=== PATIENT | female | born 1975 | race Caucasian/White ===

== ENCOUNTER 2023-01-27 21:53 | Observation (INO) | payer BC, SELFPAY ==
[2023-01-27 21:57] VITALS: BP 165/94; PULSE 65; RESP 20; TEMP 36.6; O2SAT 100; BMI 28.8
[2023-01-27 22:04] VITALS: BP 165/94
--- NOTE | 2023-01-27 22:27 | ED_ITS ---
HPI - Chest Pain General Chief Complaint: Back Pain/Injury Stated Complaint: BACK PAIN, NECK PAIN Time Seen by Provider: 01/27/23 22:10 Source: patient Mode of arrival: walk-in Limitations: no limitations History of Present Illness HPI narrative: patient states she was at work at around 7pm and developed left arm pain and pain of her left back. Was taken to [facility] and was placed in the waiting room for 2 hours. States she called her and had him bring her here. The pain continues and is now radiating into her left neck as well. Pain 9/10. No associated nausea or dyspnea. no abdominal pain or prior history of similar pain. Her only heart history fo mitral valve replacement several years ago. She does not smoke cigarettes but does Vape. Denies any significant family history of heart disease. Denies chest pain Risk Factors Coronary artery disease risk factors: smoking history Related Data Home Medications Medication Instructions Recorded Confirmed ibuprofen 400 mg tablet (IBU) 400 mg PO TID-QID PRN fever or pain 01/28/23 01/28/23 levothyroxine 125 mcg tablet 125 mcg PO DAILY 01/28/23 01/28/23 Previous Rx's Medication Instructions Recorded cyclobenzaprine 10 mg tablet 10 mg PO TID PRN Muscle Spasm #30 01/28/23 tabs oxycodone-acetaminophen 5 mg-325 1 tab PO Q4H PRN Moderate Pain 5 01/28/23 mg tablet days #0 tabs prednisone 10 mg tablets in a dose 10 mg PO DAILY #39 ea 01/28/23 pack Allergies Allergy/AdvReac Type Severity Reaction Status Date / Time aspirin Allergy Unknown Verified 01/27/23 22:06 Iodinated Contrast Media Allergy Unknown Verified 01/27/23 22:06 Penicillins Allergy Unknown Verified 01/27/23 22:06 promethazine [From Phenergan] Allergy Unknown Verified 01/27/23 22:06 Review of Systems ROS Status of ROS 10 or more systems reviewed and unremarkable except as noted in history and below [facility] Medical History (Updated 01/28/23 @ 09:15 by Balwinder Gamez MD) Surgical History (Updated 01/28/23 @ 05:02 by Sussy Manjarrez) Family History (Updated 01/28/23 @ 05:02 by Sussy Manjarrez) Father Family history of cancer Mother Family history of cancer Social History (Updated 01/28/23 @ 05:20 by Sussy Manjarrez) Within the past year, how often did you have a drink containing alcohol: monthly or less Within the past year, how many standard drinks containing alcohol did you have on a typical day: 1 or 2 Within the past year, how often did you have six or more drinks on one occasion: never Total score: 0 Score interpretation: A score less than 3 is consistent with normal alcohol consumption. Do you use any of these nicotine containing products: vaping products Non-prescribed substance use: denies use Little interest or pleasure in doing things: not at all Feeling down, depressed, or hopeless: not at all Feel stressed/tense/nervous/anxious/difficulty sleeping: not at all Do you think of yourself as: straight/heterosexual Gender Identity: female Exam Constitutional Vital Signs - 24 hr 01/27/23 21:57 01/27/23 22:04 01/28/23 04:33 Temperature 97.9 F Pulse Rate [Monitor] 65 Respiratory Rate 20 Blood Pressure 165/94 H 149/93 H Blood Pressure [Right Arm] 165/94 H Pulse Oximetry 100 Oxygen Delivery Method Room Air Common normals: no apparent distress, average body habitus, oriented x3, no limitations and healthy appearing HENNM Common normals: normocephalic and head/scalp atraumatic Eye Common normals: EOMs intact bilaterally and conjunctivae normal Respiratory Common normals: normal respiratory effort, no retractions, no use of accessory muscles and clear to auscultation bilaterally GI Common normals: non-tender Extremity Common normals: normal to inspection and full ROM Neuro Common normals: oriented x3, CN's II-XII intact bilaterally, moves all extremities, no focal motor deficits and no sensory deficits noted Psych Appearance: grossly normal Course Vital Signs Vital signs: Vital Signs Temperature 97.9 F 01/27/23 21:57 Pulse Rate 65 01/27/23 21:57 Respiratory Rate 20 01/27/23 21:57 Blood Pressure 165/94 H 01/27/23 21:57 Pulse Oximetry 100 01/27/23 21:57 Oxygen Delivery Method Room Air 01/27/23 21:57 Temperature 96.9 F L 01/28/23 13:14 Pulse Rate 59 L 01/28/23 13:14 Respiratory Rate 16 01/28/23 13:14 Blood Pressure 111/73 01/28/23 13:14 Pulse Oximetry 97 01/28/23 13:14 Oxygen Delivery Method Room Air 01/28/23 13:14 MDM - Chest Pain MDM Narrative Medical decision making narrative: patient presents with pain radiating down her left arm and into her back beneath her shoulder blade. Pain then radiated into her left neck. Normal EKG and serial troponin neg. Pain continued despite morphine and dilaudid . Only decreasing from 9/10 to 8/10. CT with findings of disc herniation that may explain her radicular symptoms and MRI recommended. Discussed with hospitalist and will plan obs admission Lab Data Labs: Lab Results 01/27/23 01/28/23 01/28/23 Range/Units 22:15 02:20 03:35 WBC 10.5 (4.0-11.0) 10^3/uL RBC 4.37 (4.20-5.40) 10^6/uL Hgb 12.9 (12.0-16.0) g/dL Hct 36.5 (36.0-48.0) % MCV 83.5 (81.0-99.0) fL MCH 29.5 (26.7-34.0) pg MCHC 35.3 H (29.9-35.2) g/dL RDW 13.6 (11.0-15.0) % Plt Count 180 (150-450) 10^3/uL MPV 10.0 (9.5-13.5) fL Neut % (Auto) 69.9 (43.0-75.0) % Lymph % (Auto) 20.7 (20.5-60.0) % Shackelford % (Auto) 6.9 (1.7-12.0) % Eos % (Auto) 1.2 (0.9-7.0) % Baso % (Auto) 0.9 (0.2-2.0) % Neut # (Auto) 7.4 H (1.4-6.5) 10^3/uL Lymph # (Auto) 2.2 (1.2-3.8) 10^3/uL Shackelford # (Auto) 0.7 (0.3-0.8) 10^3/uL Eos # (Auto) 0.1 (0.0-0.7) 10^3/uL Baso # (Auto) 0.1 (0.0-0.1) 10^3/uL Abs Immat Gran (auto) 0.04 H (0.00-0.03) 10^3/uL Imm/Tot Granulo (auto) 0.4 (0.0-0.5) % ESR 16 (<=20) mm/hr Sodium 139 (136-145) mmol/L Potassium 3.4 L (3.5-5.1) mmol/L Chloride 105 (98-107) mmol/L Carbon Dioxide 24.4 (21.0-32.0) mmol/L Anion Gap 13.0 BUN 10.0 (7.0-18.0) mg/dL Creatinine 0.90 (0.55-1.02) mg/dL Est GFR ( Amer) >60 (>=60) Est GFR (Non-Af Amer) >60 (>=60) BUN/Creatinine Ratio 11.1 Glucose 94 (74-106) mg/dL Calcium 9.1 (8.5-10.1) mg/dL Troponin I High Sens 5.5 6.8 (4.0-51.3) pg/mL C-Reactive Protein <0.2 (<=1.0) mg/dL Discharge Plan Discharge Chief Complaint: Back Pain/Injury Clinical Impression: Neuropathy, cervical (radicular) Patient Disposition: Admitted as Observation Discharge Date/Time: 01/28/23 04:56
--- NOTE | 2023-01-27 22:31 | XR_ITS ---
The [address] [address] Patient Name: RAND SCOTT MRN: [facility]:[id number] date: 1975 Sex: F Assigned Patient Location: ER Current Patient Location: ER Accession/Order Number: [id number] Exam Date: 01/27/2023 23:00 Report Date: 01/27/2023 23:15 At the request of: LUCITA MOULTON Procedure: XR chest 1V EXAM: XR chest 1V REASON FOR EXAM: Female, 47 years, chest pain. TECHNIQUE: A single AP view of the chest is performed. COMPARISON: 06/17/2020. FINDINGS: The lungs are expanded and clear. Normal pleura. Sternal wires are seen. Heart is not significantly enlarged. Normal mediastinum and gia. Normal visualized pulmonary arteries. Normal visualized aortic arch and descending thoracic aorta. Normal visualized thoracic spine. Normal visualized ribs, clavicles, and shoulders. There is no demonstrated abnormality of the visualized soft tissue structures of the upper abdomen. IMPRESSION: No acute process in the chest. Electronically authenticated by: JORDY BERNAL Date: 01/27/2023 23:15
--- NOTE | 2023-01-27 22:31 | ECG_ITS ---
The [facility] Test Date: 2023-01-27 Pat Name: RAND SCOTT Department: Room: - Gender: Female [employer]: : 1975 Requested By: [id number] Order Number: [id number] Reading MD: VIKI ALVAREZ Measurements Intervals Jesse Rate: 68 P: 44 IA: 204 QRS: 79 QRSD: 90 T: 44 QT: 404 QTc: 421 Interpretive Statements 1100 Sinus rhythm 9110 normal ECG No previous ECG available for comparison Electronically Signed On 01-28-2023 7:11:20 EDT by VIKI ALVAREZ
[2023-01-27 22:36] LABS: Basophils Absolute Auto 0.1 10^3/uL (0.0-0.1); Basophils Percent Auto 0.9 % (0.2-2.0); Eosinophils Absolute Auto 0.1 10^3/uL (0.0-0.7); Eosinophils Percent Auto 1.2 % (0.9-7.0); Hematocrit 36.5 % (36.0-48.0); Hemoglobin 12.9 g/dL (12.0-16.0); Immature Granulocytes Abs Auto 0.04 10^3/uL (0.00-0.03); Immature Granulocytes Pct Auto 0.4 % (0.0-0.5); Lymphocytes Absolute Auto 2.2 10^3/uL (1.2-3.8); Lymphocytes Percent Auto 20.7 % (20.5-60.0); Mean Corpuscular HGB Conc 35.3 g/dL (29.9-35.2); Mean Corpuscular Hemoglobin 29.5 pg (26.7-34.0); Mean Corpuscular Volume 83.5 fL (81.0-99.0); Monocytes Absolute Auto 0.7 10^3/uL (0.3-0.8); Monocytes Percent Auto 6.9 % (1.7-12.0); Neutrophils Absolute Auto 7.4 10^3/uL (1.4-6.5); Neutrophils Percent Auto 69.9 % (43.0-75.0); Platelet Count 180 10^3/uL (150-450); Red Blood Count 4.37 10^6/uL (4.20-5.40); Red Cell Distribution Width 13.6 % (11.0-15.0); White Blood Count 10.5 10^3/uL (4.0-11.0)
[2023-01-27 22:55] LABS: BUN Creatinine Ratio 11.1; Calcium 9.1 mg/dL (8.5-10.1); Carbon Dioxide 24.4 mmol/L (21.0-32.0); Chloride 105 mmol/L (98-107); Estimated GFR (African America >60 (>=60); Estimated GFR (Non-African Ame >60 (>=60); Glucose 94 mg/dL (74-106); Potassium 3.4 mmol/L (3.5-5.1); Sodium 139 mmol/L (136-145); Troponin I High Sensitivity 5.5 pg/mL (4.0-51.3)
[2023-01-27] MEDS: ONDANSETRON PF 4 MG/2 ML VIAL IV (23:21)
[2023-01-27] MEDS: MORPHINE SULFATE 4 MG/ML VIAL IV (23:21)
[2023-01-28] MEDS: NITROGLYCERIN 0.4 MG TAB.SUBL PO (00:16)
[2023-01-28] MEDS: MORPHINE SULFATE 4 MG/ML VIAL IV (00:25)
--- NOTE | 2023-01-28 00:35 | CT_ITS ---
The [address] [address] Patient Name: RAND SCOTT MRN: [facility]:[id number] date: 1975 Sex: F Assigned Patient Location: ER Current Patient Location: ER Accession/Order Number: [id number] Exam Date: 01/28/2023 01:00 Report Date: 01/28/2023 01:40 At the request of: LUCITA MOULTON Procedure: CT cervical spine wo con EXAM: CT cervical spine wo con HISTORY: Acute radicular pain. COMPARISON: None. TECHNIQUE: Noncontrast CT of the cervical spine performed. FINDINGS: Alignment is normal. No fracture or subluxation. There is mild loss of disc height from C4-C5 to C6-C7. Canal is widely patent. Bony exit foramina are patent. There does appear to be a small lateral disc herniation on the left side effacing the exit foramina at the C4-C5 level. Lung apices are clear to the extent of visualization. IMPRESSION: 1. No acute osseous abnormality. 2. Mild lower cervical degenerative changes are noted. 3. There is a small lateral disc herniation on the left at C4-C5 which does efface the left-sided exit foramina at this level and may correlate with reported history of left upper extremity radicular symptoms. Recommend nonemergent MRI follow-up. Electronically authenticated by: MITCH SCHERER Date: 01/28/2023 01:40
[2023-01-28] MEDS: HYDROMORPHONE HCL 0.5 MG/0.5 ML SYRINGE IV (02:49)
[2023-01-28] MEDS: ONDANSETRON PF 4 MG/2 ML VIAL (02:54)
[2023-01-28 02:56] LABS: Troponin I High Sensitivity 6.8 pg/mL (4.0-51.3)
[2023-01-28 04:25] LABS: Erythrocyte Sedimentation Rate 16 mm/hr (<=20)
[2023-01-28] MEDS: DIPHENHYDRAMINE HCL 50 MG/ML (1ML) VIAL 25 MG IV (04:26)
[2023-01-28 04:28] LABS: C Reactive Protein <0.2 mg/dL (<=1.0)
[2023-01-28 04:33] VITALS: BP 149/93
[2023-01-28 05:06] VITALS: BP 134/76; PULSE 51; RESP 16; TEMP 36.4; O2SAT 96; BMI 29.5
--- NOTE | 2023-01-28 05:31 | W.PM.TELEPN ---
Progress Note: Subjective Subjective Interval history: CC: neck pain radiating to LUE HPI: This is a 47 years old usually healthy female who presents with above complaints. Patient stating that during the work time suddenly she started to experience pain in her neck. Pain gradually intensified to the point become unbearable. She reports pain radiating to his left shoulder and left arm. She feels that her neck is stiff. She denies any fever or chills. She denies any trauma. She stated that she had similar episodes in the remote past but much less intensity. Exam Narrative Exam Narrative: Physical Exam: Not in distress, pleasant, lucid, cooperative, Head - atraumatic, eyes - pupils equal, round, reactive to light, extra ocular movement intact, MMM Neck - supple, thyroid not enlarged, LN not palpated Lungs - clear to auscultation, no dullness on percussion CVS - heart sounds S1, S2, no additional murmurs gallop, regular rate and rhythm Gastrointestinal?abdomen is soft, non-tender, non-distended, no organomegaly, positive bowel sounds Extremities no clubbing, cyanosis or edema Neurological?cranial nerve II?XII grossly intact, no meningeal signs, no cerebellar signs, no sensory deficit Musculoskeletal - DJD related changes in multiple joints, no effusions, ROM preserved Dermatological - the skin dry, warm, no rashes Psychiatric?patient is AAO X3, patient has normal affect Constitutional Vital Signs - 24 hr 01/27/23 21:57 01/27/23 22:04 01/28/23 04:33 Temperature 97.9 F Pulse Rate Pulse Rate [Monitor] 65 Respiratory Rate 20 Blood Pressure 165/94 H 149/93 H Blood Pressure [Left Arm] Blood Pressure [Right Arm] 165/94 H Pulse Oximetry 100 Oxygen Delivery Method Room Air 01/28/23 05:06 01/28/23 05:06 01/28/23 05:06 Temperature 97.6 F 97.6 F Pulse Rate 51 L 51 L Pulse Rate [Monitor] Respiratory Rate 16 16 Blood Pressure Blood Pressure [Left Arm] 134/76 H 134/76 H Blood Pressure [Right Arm] Pulse Oximetry 96 96 Oxygen Delivery Method Room Air Room Air Room Air Progress Note: Objective Labs Labs: Short CBC 01/27/23 Range/Units 22:15 WBC 10.5 (4.0-11.0) 10^3/uL Hgb 12.9 (12.0-16.0) g/dL Hct 36.5 (36.0-48.0) % Plt Count 180 (150-450) 10^3/uL BMP 01/27/23 22:15 Sodium 139 Potassium 3.4 L Chloride 105 Carbon Dioxide 24.4 BUN 10.0 Creatinine 0.90 Glucose 94 Calcium 9.1 Progress Note: A&P Assessment and Plan (1) Neuropathy, cervical (radicular): Assessment and Plan: Intractable neck pain with mild radiculopathy. CT of the cervical spine reveal mild disc bulging. I am going to continue with steroids, muscle relaxers, anti-inflammatory medications. Follow-up with physical occupational therapy. I ordered MRI. (2) Hypothyroid: Assessment and Plan: Continue home dose of supplemental levothyroxine (3) Mitral and aortic valve disease: Assessment and Plan: Follow-up with the credit review manager as outpatient Telemedicine Attestation Telemedicine Attestation I conducted this encounter from [place] [] via secure live, [id number] video conference with the patient, located at [facility] with [intractable pain]. Prior to the interview, the risks and benefits of telemedicine were discussed with the patient and verbal consent was obtained.
[2023-01-28] MEDS: PREDNISONE 20 MG TABLET 40 MG PO (08:14)
[2023-01-28] MEDS: ONDANSETRON PF 4 MG/2 ML VIAL IV (08:15)
[2023-01-28 08:38] LABS: Alanine Aminotransferase 24 U/L (14-59); Albumin Level 3.4 g/dL (3.4-5.0); Alkaline Phosphatase 72 U/L (46-116); Anion Gap 12.4; Aspartate Amino Transferase 18 U/L (15-37); BUN Creatinine Ratio 15.5; Bilirubin Total 0.7 mg/dL (0.2-1.0); Calcium 8.4 mg/dL (8.5-10.1); Carbon Dioxide 23.6 mmol/L (21.0-32.0); Chloride 105 mmol/L (98-107); Estimated GFR (African America >60 (>=60); Estimated GFR (Non-African Ame >60 (>=60); Globulin 3.4 g/dL; Glucose 113 mg/dL (74-106); Sodium 137 mmol/L (136-145); Total Protein 6.8 g/dL (6.4-8.2)
[2023-01-28] MEDS: LEVOTHYROXINE SODIUM 125 MCG TABLET PO (10:54)
--- NOTE | 2023-01-28 11:10 | MR_ITS ---
The [address] [address] Patient Name: RAND SCOTT MRN: [facility]:[id number] date: 1975 Sex: F Assigned Patient Location: MS Current Patient Location: MS Accession/Order Number: [id number] Exam Date: 01/28/2023 11:10 Report Date: 01/28/2023 14:55 At the request of: BRISSA ZABALA Procedure: MR cervical spine wo con EXAM: MR cervical spine wo con HISTORY: Cervical spine pain with left arm tingling and numbness. No specific injury. COMPARISON: Cervical spine CT from 01/28/2023. TECHNIQUE: Multiplanar and multisequence imaging of the cervical spine was performed without contrast. FINDINGS: There is mild motion artifact on this study. No acute fracture or spondylolisthesis is evident. There is moderate disc height loss at C5-C6 and mild disc height loss at C6-C7 with disc desiccation throughout cervical spine. No acute abnormality is identified in the posterior fossa or at the craniocervical junction. No focal cord signal abnormality is identified in the cervical cord. There is no gross abnormality involving the thyroid gland. C2-C3: No focal disc herniation is evident. There is no central or foraminal stenosis. C3-C4: There is no focal disc herniation. There is no central or foraminal stenosis. C4-C5: A broad-based disc-osteophyte complex measures 3 mm in AP dimension and extends to the foraminal region left greater than right. There is effacement of the thecal sac and mild to moderate central narrowing with the thecal sac measuring 8 mm in AP dimension. There is moderate lateral recess narrowing bilaterally along with moderate left and mild right foraminal narrowing. C5-C6: A broad-based disc-osteophyte complex is asymmetric to the right measuring up to 4 mm in AP dimension. This results in effacement of the thecal sac and mild to moderate central narrowing with the thecal sac measuring 8 mm in AP dimension. There is moderate to marked lateral recess narrowing on the right with moderately severe right and mild left foraminal narrowing. C6-C7: There is a 3 mm broad-based disc-osteophyte complex which effaces the thecal sac and results in mild central narrowing with the thecal sac measuring 9 mm in AP dimension. There is moderate lateral recess narrowing bilaterally and mild left foraminal narrowing. IMPRESSION: 1. A broad-based disc-osteophyte complex at C4-C5 results in mild to moderate central narrowing and mild lateral recess narrowing bilaterally with moderate left and mild right foraminal narrowing. 2. A broad-based disc-osteophyte complex at C5-C6 results in mild to moderate central narrowing and moderate to marked lateral recess narrowing more pronounced on the right along with moderately severe right and mild left foraminal narrowing. 3. There is a broad-based disc-osteophyte complex at C6-C7 resulting in mild central narrowing and mild left foraminal narrowing. 4. No acute fracture. Electronically authenticated by: KATIE BHANDARI Date: 01/28/2023 14:55
--- NOTE | 2023-01-28 12:15 | P.HP_ITS ---
H&P: HPI History of Present Illness Chief complaint: Neck pain Narrative: 47 y/o female who presents to ER with sudden onset of severe pain in neck and left arm. Patient at work and no fall, injury, or trauma. Pain in base neck and severe tightness. Pain radiated into top left shoulder. Pain down arm and severe pain to move arm or use left arm. Severe pain and to ER. CT showed cervical DDD and harniated disc at C4/C5. Not able to control pain and admitted. Started steroids and flexeril. Pain slightly better this am but still severe. Continues to have pain with movement of left arm. Review of Systems ROS Constitutional Denies: fever, chills or night sweats Cardiovascular Denies: chest pain, palpitations or edema Respiratory Denies: shortness of breath, cough or wheezing Gastrointestinal Reports: nausea; Denies: abdominal pain, vomiting or diarrhea Genitourinary Denies: painful urination Musculoskeletal Reports: neck pain and extremity pain PFSH [facility] Medical History (Updated 01/28/23 @ 09:15 by Balwinder Gamez MD) Surgical History (Updated 01/28/23 @ 05:02 by Sussy Manjarrez) Family History (Updated 01/28/23 @ 05:02 by Sussy Manjarrez) Father Family history of cancer Mother Family history of cancer Social History (Updated 01/28/23 @ 05:20 by Sussy Manjarrez) Within the past year, how often did you have a drink containing alcohol: monthly or less Within the past year, how many standard drinks containing alcohol did you have on a typical day: 1 or 2 Within the past year, how often did you have six or more drinks on one occasion: never Total score: 0 Score interpretation: A score less than 3 is consistent with normal alcohol consumption. Do you use any of these nicotine containing products: vaping products Non-prescribed substance use: denies use Little interest or pleasure in doing things: not at all Feeling down, depressed, or hopeless: not at all Feel stressed/tense/nervous/anxious/difficulty sleeping: not at all Do you think of yourself as: straight/heterosexual Gender Identity: female Meds Home Medications and Allergies Home Medications Medication Instructions Recorded Confirmed Type ibuprofen 400 mg tablet (IBU) 400 mg PO TID-QID PRN fever or pain 01/28/23 01/28/23 History levothyroxine 125 mcg tablet 125 mcg PO DAILY 01/28/23 01/28/23 History Allergies Allergy/AdvReac Type Severity Reaction Status Date / Time aspirin Allergy Unknown Verified 01/27/23 22:06 Iodinated Contrast Media Allergy Unknown Verified 01/27/23 22:06 Penicillins Allergy Unknown Verified 01/27/23 22:06 promethazine [From Phenergan] Allergy Unknown Verified 01/27/23 22:06 Exam Constitutional Vital Signs - 24 hr 01/27/23 21:57 01/27/23 22:04 01/28/23 04:33 Temperature 97.9 F Pulse Rate Pulse Rate [Monitor] 65 Respiratory Rate 20 Blood Pressure 165/94 H 149/93 H Blood Pressure [Left Arm] Blood Pressure [Right Arm] 165/94 H Pulse Oximetry 100 Oxygen Delivery Method Room Air 01/28/23 05:06 01/28/23 05:06 01/28/23 05:06 Temperature 97.6 F 97.6 F Pulse Rate 51 L 51 L Pulse Rate [Monitor] Respiratory Rate 16 16 Blood Pressure Blood Pressure [Left Arm] 134/76 H 134/76 H Blood Pressure [Right Arm] Pulse Oximetry 96 96 Oxygen Delivery Method Room Air Room Air Room Air Documenting provider has reviewed patient's vital signs: yes Common normals: no apparent distress, oriented x3 and alert HENMT Common normals: normocephalic Eye Common normals: PERRL and EOMs intact bilaterally Respiratory Common normals: clear to auscultation bilaterally Cardio Common normals: regular rate, regular rhythm, no gallops, no murmurs and no rub GI Common normals: Normal to inspection, nondistended, normoactive bowel sounds present and non-tender Extremity General: no edema Results Labs Labs: Short CBC 01/27/23 Range/Units 22:15 WBC 10.5 (4.0-11.0) 10^3/uL Hgb 12.9 (12.0-16.0) g/dL Hct 36.5 (36.0-48.0) % Plt Count 180 (150-450) 10^3/uL BMP 01/27/23 01/28/23 22:15 08:11 Sodium 139 137 Potassium 3.4 L 4.0 Chloride 105 105 Carbon Dioxide 24.4 23.6 BUN 10.0 11.0 Creatinine 0.90 0.71 Glucose 94 113 H Calcium 9.1 8.4 L Liver Function 01/28/23 Range/Units 08:11 Total Bilirubin 0.7 (0.2-1.0) mg/dL AST 18 (15-37) U/L ALT 24 (14-59) U/L Alkaline Phosphatase 72 (46-116) U/L Albumin 3.4 (3.4-5.0) g/dL Imaging CT neck: Attestation: I have reviewed the pertinent imaging results. Assessment and Plan Assessment and Plan (1) Herniation of cervical intervertebral disc with radiculopathy: (2) Degenerative disc disease, cervical: (3) Neuropathy, cervical (radicular): Plan Severe pain and continue steroids and muscle relaxers. Check MRI cervical spine. Start PT. Use percocet PRN for pain. Resume home medication. If able to control pain likely ready for discharge in am and can f/u as outpatient for treatment.
[2023-01-28 13:14] VITALS: BP 111/73; PULSE 59; RESP 16; TEMP 36.1; O2SAT 97
[2023-01-28] MEDS: METHYLPREDNISOLONE SOD SUCC PF 125 MG/2 ML VIAL 60 MG IVP (15:03)
--- NOTE | 2023-01-29 10:23 | CM.DCFOLLOWU ---
Person spoke with: patient How are you feeling? sore How is your pain? still in some pain Did you understand your discharge instructions? yes Do you have any questions about your discharge instructions? no Were you given any prescriptions at discharge? yes Were you able to get your prescriptions filled? yes, being filled today 01/29/23 Do you understand how to take your medications as ordered? yes Do you have any questions about your follow up appointment and do you plan to keep your follow up appointment? no questions, will see her PCP today 01/29/23 Is there anything else that you would like to discuss? no Questions/Comments/Concerns/Other:
== END 2023-01-28 17:04 | disposition home or self-care (01) ==
LOC: ER 01-28 04:34 → MS 01-28 04:48
PROVIDERS: Admitting Provider Internal Medicine; Emergency Provider Internal Medicine; Visit Provider Family Medicine
DX: M50.121 Cervical disc disorder at C4-C5 level with radiculopathy (principal); E03.9 Hypothyroidism, unspecified; I08.0 Rheumatic disorders of both mitral and aortic valves; Z79.890 Hormone replacement therapy; F17.290 Nicotine dependence, other tobacco product, uncomplicated; Z95.2 Presence of prosthetic heart valve
CPT/HCPCS: 36415; 71045; 72125; 72141; 80048; 80053; 84484; 85025; 85652; 86140; 93005; 96374; 96375; 96376; 99285; G0378; J1170; J2930; Q3014

== ENCOUNTER 2023-05-25 23:57 | Emergency (ER) | payer BC, SELFPAY ==
[2023-05-25 23:59] VITALS: BP 180/122; PULSE 86; RESP 18; TEMP 36.7; O2SAT 100; BMI 29.5
[2023-05-26 00:17] VITALS: BP 198/110
[2023-05-26 00:37] LABS: Bilirubin Urine NEGATIVE (NEGATIVE); Blood Urine NEGATIVE (NEGATIVE); Clarity Urine CLEAR (CLEAR); Color Urine LT. YELLOW (YELLOW); Glucose Urine UA NEGATIVE (NEGATIVE); Ketones Urine NEGATIVE (NEGATIVE); Leukocyte Esterase Urine NEGATIVE (NEGATIVE); Nitrite Urine NEGATIVE (NEGATIVE); Protein Urine NEGATIVE (NEG/TRACE); Specific Gravity Urine <=1.005 (1.005-1.025); Urobilinogen Urine 0.2 EU/dL (0.2-1.0)
[2023-05-26 00:43] LABS: Alanine Aminotransferase 30 U/L (14-59); Albumin Globulin Ratio 1.1; Albumin Level 4.1 g/dL (3.4-5.0); Alkaline Phosphatase 107 U/L (46-116); Anion Gap 9.8; Aspartate Amino Transferase 17 U/L (15-37); BUN Creatinine Ratio 12.4; Bilirubin Total 0.9 mg/dL (0.2-1.0); Calcium 9.2 mg/dL (8.5-10.1); Carbon Dioxide 26.5 mmol/L (21.0-32.0); Chloride 102 mmol/L (98-107); Estimated GFR (African America >60 (>=60); Estimated GFR (Non-African Ame >60 (>=60); Globulin 3.6 g/dL; Glucose 94 mg/dL (74-106); Potassium 3.3 mmol/L (3.5-5.1); Sodium 135 mmol/L (136-145); Total Protein 7.7 g/dL (6.4-8.2)
[2023-05-26] MEDS: 0.9 % SODIUM CHLORIDE 1,000 ML 1000 ML IV (00:46)
[2023-05-26 00:47] LABS: Bacteria Urine NONE SEEN #/HPF (NONE SEEN); Cast Seen? NONE SEEN #/LPF (NONE SEEN); Crystals Seen? None Seen #/HPF (None Seen); Mucus Urine NONE SEEN (NONE SEEN); RBC Urine 0-2 #/HPF (0-2); Squamous Epithelial Cell Urine RARE #/LPF (NONE/RARE); WBC Urine NONE SEEN #/HPF (NONE SEEN)
[2023-05-26] MEDS: KETOROLAC TROMETHAMINE 30 MG/ML VIAL IVP (00:47)
[2023-05-26 00:53] LABS: Basophils Absolute Auto 0.1 10^3/uL (0.0-0.1); Basophils Percent Auto 0.7 % (0.2-2.0); Eosinophils Absolute Auto 0.1 10^3/uL (0.0-0.7); Eosinophils Percent Auto 1.7 % (0.9-7.0); Hematocrit 35.1 % (36.0-48.0); Hemoglobin 11.9 g/dL (12.0-16.0); Immature Granulocytes Abs Auto 0.01 10^3/uL (0.00-0.03); Immature Granulocytes Pct Auto 0.1 % (0.0-0.5); Lymphocytes Absolute Auto 2.3 10^3/uL (1.2-3.8); Lymphocytes Percent Auto 26.9 % (20.5-60.0); Mean Corpuscular HGB Conc 33.9 g/dL (29.9-35.2); Mean Corpuscular Hemoglobin 29.3 pg (26.7-34.0); Mean Corpuscular Volume 86.5 fL (81.0-99.0); Mean Platelet Volume 10.7 fL (9.5-13.5); Monocytes Absolute Auto 0.7 10^3/uL (0.3-0.8); Monocytes Percent Auto 8.4 % (1.7-12.0); Neutrophils Absolute Auto 5.2 10^3/uL (1.4-6.5); Neutrophils Percent Auto 62.2 % (43.0-75.0); Platelet Count 189 10^3/uL (150-450); Red Blood Count 4.06 10^6/uL (4.20-5.40); Red Cell Distribution Width 13.5 % (11.0-15.0); White Blood Count 8.4 10^3/uL (4.0-11.0)
--- NOTE | 2023-05-26 00:55 | CT_ITS ---
The [address] [address] Patient Name: RAND SCOTT MRN: [facility]:[id number] date: 1975 Sex: F Assigned Patient Location: ER Current Patient Location: ER Accession/Order Number: [id number] Exam Date: 05/26/2023 01:03 Report Date: 05/26/2023 01:30 At the request of: SCAR MARKER Procedure: CT abdomen pelvis wo con EXAMINATION: CT abdomen pelvis wo con HISTORY: LLQ abd pain , acute COMPARISON: No relevant comparison available. TECHNIQUE: Axial, Coronal, and Sagittal images were obtained without and/or with IV contrast as indicated by examination type. Dose reduction techniques were achieved by using automated exposure control and/or adjustment of mA and/or kV according to patient size and/or use of iterative reconstruction technique. FINDINGS: LUNG BASES: No visible pulmonary or pleural disease. LIVER: No enlargement, atrophy, suspicious density, or significant focal lesion. BILIARY: No dilatation or calcification. PANCREAS: No lesion, fluid collection, or abnormal duct dilatation. SPLEEN: No enlargement or focal lesion. ADRENALS: No mass or enlargement. KIDNEYS: No mass, obstruction, or calcification. BOWEL/MESENTERY: No visible mass, obstruction, or bowel wall thickening. AORTA/VASCULAR: No aneurysm or dissection. RETROPERITONEUM: No mass or adenopathy. LYMPH NODES: No adenopathy. URINARY BLADDER: No visible focal wall thickening, lesion, or calculus. PELVIC ORGANS: Hysterectomy. ABDOMINAL WALL: No mass or hernia. BONES: No bony lesion or fracture. OTHER: Negative. CT/CT abdomen pelvis wo con IMPRESSION: 1. No abnormal or suspicious findings to account for patient's symptoms. Electronically authenticated by: EFFIE ANSARI Date: 05/26/2023 01:30
--- NOTE | 2023-05-26 01:09 | ED.GENADUL1 ---
HPI - General Adult General Chief complaint: Urogenital-Female Stated complaint: LT FLANK PAIN Time Seen by Provider: 05/26/23 00:05 Source: patient Mode of arrival: Wheelchair History of Present Illness HPI narrative: This 48-year-old female who is status post hysterectomy, tubal ligation, appendectomy presents for evaluation of acute onset of left lower quadrant abdominal pain. The patient states she was using the bathroom and went to get off of the toilet and had acute onset of severe sharp left lower quadrant/left adnexal abdominal pain. She denies any nausea or vomiting. He was no associated flank pain. She denies any dysuria or hematuria. Related Data Home Medications Medication Instructions Recorded Confirmed ibuprofen 400 mg tablet (IBU) 400 mg PO TID-QID PRN fever or pain 01/28/23 01/28/23 levothyroxine 125 mcg tablet 125 mcg PO DAILY 01/28/23 01/28/23 Previous Rx's Medication Instructions Recorded cyclobenzaprine 10 mg tablet 10 mg PO TID PRN Muscle Spasm #30 01/28/23 tabs oxycodone-acetaminophen 5 mg-325 1 tab PO Q4H PRN Moderate Pain 5 01/28/23 mg tablet days #0 tabs prednisone 10 mg tablets in a dose 10 mg PO DAILY #39 ea 01/28/23 pack Allergies Allergy/AdvReac Type Severity Reaction Status Date / Time aspirin Allergy Unknown Verified 01/27/23 22:06 Iodinated Contrast Media Allergy Unknown Verified 01/27/23 22:06 Penicillins Allergy Unknown Verified 01/27/23 22:06 promethazine [From Phenergan] Allergy Unknown Verified 01/27/23 22:06 Review of Systems ROS Status of ROS 10 or more systems reviewed and unremarkable except as noted in history and below [facility] Medical History (Updated 05/26/23 @ 02:05 by Ginna Lora MD) Degenerative disc disease, cervical ?M50.30 - Other cervical disc degeneration, unspecified cervical region (ICD-10) Herniation of cervical intervertebral disc with radiculopathy ?M50.10 - Cervical disc disorder with radiculopathy, unspecified cervical region (ICD-10) Hypothyroid ?E03.9 - Hypothyroidism, unspecified (ICD-10) Mitral and aortic valve disease ?I08.0 - Rheumatic disorders of both mitral and aortic valves (ICD-10) Surgical History (Updated 01/28/23 @ 05:02 by Sussy Manjarrez) H/O hysterectomy with unilateral oophorectomy ?Z90.710 - Acquired absence of both cervix and uterus (ICD-10) ?Z90.721 - Acquired absence of ovaries, unilateral (ICD-10) H/O mitral valve replacement ?Z95.2 - Presence of prosthetic heart valve (ICD-10) History of appendectomy ?Z90.49 - Acquired absence of other specified parts of digestive tract (ICD-10) Family History (Updated 01/28/23 @ 05:02 by Sussy Manjarrez) Father Family history of cancer Mother Family history of cancer Social History (Updated 01/28/23 @ 05:20 by Sussy Manjarrez) Within the past year, how often did you have a drink containing alcohol: monthly or less Within the past year, how many standard drinks containing alcohol did you have on a typical day: 1 or 2 Within the past year, how often did you have six or more drinks on one occasion: never Total score: 0 Score interpretation: A score less than 3 is consistent with normal alcohol consumption. Smoking status: Current some day smoker Do you use any of these nicotine containing products: vaping products Non-prescribed substance use: denies use Little interest or pleasure in doing things: not at all Feeling down, depressed, or hopeless: not at all Feel stressed/tense/nervous/anxious/difficulty sleeping: not at all Do you think of yourself as: straight/heterosexual Gender Identity: female Exam Narrative Exam Narrative: Nurses note and vital signs reviewed and patient is not hypoxic. General: The patient appears well and is mildy uncomfortable when asked to lie flat. No resp distress, no active vomiting Skin: Warm, dry, no pallor noted. There is no rash noted. Head: Normocephalic, atraumatic Eye: Normal conjunctiva, no drainage, EOMI. PERRL Ears, Nose, Mouth, and Throat: oral mucosa is moist. Cardiovascular: Regular Rate and Rhythm S1S2, pulses are brisk and equal Respiratory: Patient is in no distress, no accessory muscle use, lungs are clear to auscultation, no wheezing, rales or rhonchi Back: non-tender, no CVA tenderness bilaterally to percussion. GI: Soft, non-distended, point tenderness in LLQ and over urinary bladder with voluntary guarding, no pulsatile masses, femoral pulse is brisk Musculoskeletal: The patient has no evidence of calf tenderness, no pitting edema, symmetrical pulses noted bilaterally Neurological: A&O x4, normal speech Psychiatric: Cooperative Constitutional Vital Signs, click to edit/add: Last Vital Signs Temp 98.1 F 05/25/23 23:59 Pulse 86 05/25/23 23:59 Resp 18 05/25/23 23:59 BP 160/88 H 05/26/23 01:31 Pulse Ox 100 05/25/23 23:59 O2 Del Method Room Air 05/25/23 23:59 Course Vital Signs Vital signs: Vital Signs Temperature 98.1 F 05/25/23 23:59 Pulse Rate 86 05/25/23 23:59 Respiratory Rate 18 05/25/23 23:59 Blood Pressure 180/122 H 05/25/23 23:59 Pulse Oximetry 100 05/25/23 23:59 Oxygen Delivery Method Room Air 05/25/23 23:59 Temperature 98.1 F 05/25/23 23:59 Pulse Rate 86 05/25/23 23:59 Respiratory Rate 18 05/25/23 23:59 Blood Pressure 160/88 H 05/26/23 01:31 Pulse Oximetry 100 05/25/23 23:59 Oxygen Delivery Method Room Air 05/25/23 23:59 Medical Decision Making MDM Narrative Medical decision making narrative: This 48-year-old female presents for evaluation of acute onset of left lower quadrant abdominal pain. The patient states she was sitting on the toilet and had sudden onset of this pain and could not get up. Her he would just gotten off from work brought her to the emergency department. She does not have a history of kidney stones. She is not having associated nausea vomiting or urinary symptoms. She was tender to palpation in the left lower quadrant and over her urinary bladder. Her blood pressure was noted to be elevated upon arrival. An IV was placed and she was medicated with IV fluids Zofran and Toradol. She did not have any relief her pain with these medications and was given 4 mg of IV morphine. Routine labs are reviewed. She has a normal white count and hemoglobin. She has normal electrolytes. Liver function tests are normal. Urinalysis is negative for infection. CT scan of the abdomen and pelvis was initially ordered with IV contrast that the patient states that she has a contrast ALLERGY so a noncontrast CT scan was ordered and is negative for acute findings. I explained to the patient that I do not know what the etiology of her pain is but she should follow closely with her family physician and [facility]. She has had a hysterectomy in the past but states that her left ovary and tube are still in place. There were no notable findings on the CT scan involving her pelvis or ovaries. She'll be given a dose of her cassette prior to discharge and a perception for Percocet and Motrin to use as needed until she can see her family physician in [facility]. I did review her OARRs report and she last had a Rx for 20 percocet in December 2022. Medical Records Medical records narrative: The [address] [address] [address] Scan Report Signed Patient: RAND SCOTT MR#: [id number] : 1975 Acct:[id number] Age/Sex: 48 / F ADM Date: 05/25/23 Loc: ER Attending Dr: Ordering Physician: Ginna Lora Date of Service: 05/26/23 Procedure(s): CT abdomen pelvis wo con Accession Number(s): [id number] cc: Physician,Non-Staff M.D.~ The [address] [address] Patient Name: RAND SCOTT MRN: [id number] date: 1975 Sex: F Assigned Patient Location: ER Current Patient Location: ER Accession/Order Number: [id number] Exam Date: 05/26/2023 01:03 Report Date: 05/26/2023 01:30 At the request of: GINNA LORA Procedure: CT abdomen pelvis wo con EXAMINATION: CT abdomen pelvis wo con HISTORY: LLQ abd pain , acute COMPARISON: No relevant comparison available. TECHNIQUE: Axial, Coronal, and Sagittal images were obtained without and/or with IV contrast as indicated by examination type. Dose reduction techniques were achieved by using automated exposure control and/or adjustment of mA and/or kV according to patient size and/or use of iterative reconstruction technique. FINDINGS: LUNG BASES: No visible pulmonary or pleural disease. LIVER: No enlargement, atrophy, suspicious density, or significant focal lesion. BILIARY: No dilatation or calcification. PANCREAS: No lesion, fluid collection, or abnormal duct dilatation. SPLEEN: No enlargement or focal lesion. ADRENALS: No mass or enlargement. KIDNEYS: No mass, obstruction, or calcification. BOWEL/MESENTERY: No visible mass, obstruction, or bowel wall thickening. AORTA/VASCULAR: No aneurysm or dissection. RETROPERITONEUM: No mass or adenopathy. LYMPH NODES: No adenopathy. URINARY BLADDER: No visible focal wall thickening, lesion, or calculus. PELVIC ORGANS: Hysterectomy. ABDOMINAL WALL: No mass or hernia. BONES: No bony lesion or fracture. OTHER: Negative. CT/CT abdomen pelvis wo con IMPRESSION: 1. No abnormal or suspicious findings to account for patient's symptoms. Electronically authenticated by: EFFIE ANSARI Date: 05/26/2023 01:30 Lab Data Labs: Lab Results 05/26/23 05/26/23 Range/Units 00:15 00:20 WBC 8.4 (4.0-11.0) 10^3/uL RBC 4.06 L (4.20-5.40) 10^6/uL Hgb 11.9 L (12.0-16.0) g/dL Hct 35.1 L (36.0-48.0) % MCV 86.5 (81.0-99.0) fL MCH 29.3 (26.7-34.0) pg MCHC 33.9 (29.9-35.2) g/dL RDW 13.5 (11.0-15.0) % Plt Count 189 (150-450) 10^3/uL MPV 10.7 (9.5-13.5) fL Neut % (Auto) 62.2 (43.0-75.0) % Lymph % (Auto) 26.9 (20.5-60.0) % [place] % (Auto) 8.4 (1.7-12.0) % Eos % (Auto) 1.7 (0.9-7.0) % Baso % (Auto) 0.7 (0.2-2.0) % Neut # (Auto) 5.2 (1.4-6.5) 10^3/uL Lymph # (Auto) 2.3 (1.2-3.8) 10^3/uL [place] # (Auto) 0.7 (0.3-0.8) 10^3/uL Eos # (Auto) 0.1 (0.0-0.7) 10^3/uL Baso # (Auto) 0.1 (0.0-0.1) 10^3/uL Abs Immat Gran (auto) 0.01 (0.00-0.03) 10^3/uL Imm/Tot Granulo (auto) 0.1 (0.0-0.5) % Sodium 135 L (136-145) mmol/L Potassium 3.3 L (3.5-5.1) mmol/L Chloride 102 (98-107) mmol/L Carbon Dioxide 26.5 (21.0-32.0) mmol/L Anion Gap 9.8 BUN 11.0 (7.0-18.0) mg/dL Creatinine 0.89 (0.55-1.02) mg/dL Est GFR ( Amer) >60 (>=60) Est GFR (Non-Af Amer) >60 (>=60) BUN/Creatinine Ratio 12.4 Glucose 94 (74-106) mg/dL Calcium 9.2 (8.5-10.1) mg/dL Total Bilirubin 0.9 (0.2-1.0) mg/dL AST 17 (15-37) U/L ALT 30 (14-59) U/L Alkaline Phosphatase 107 (46-116) U/L Total Protein 7.7 (6.4-8.2) g/dL Albumin 4.1 (3.4-5.0) g/dL Globulin 3.6 g/dL Albumin/Globulin Ratio 1.1 Urine Color Lt. yellow (YELLOW) Urine Clarity Clear (CLEAR) Urine pH 6.0 (5.0-9.0) Ur Specific [place] <=1.005 A (1.005-1.025) Urine Protein Negative (NEG/TRACE) mg/dL Urine Glucose (UA) Negative (NEGATIVE) mg/dL Urine Ketones Negative (NEGATIVE) mg/dL Urine Occult Blood Negative (NEGATIVE) Urine Nitrite Negative (NEGATIVE) Urine Bilirubin Negative (NEGATIVE) Urine Urobilinogen 0.2 (0.2-1.0) EU/dL Ur Leukocyte Esterase Negative (NEGATIVE) Urine RBC 0-2 (0-2) #/HPF Urine WBC None seen (NONE SEEN) #/HPF Ur Squamous Epith Cells Rare (NONE/RARE) #/LPF Urine Crystals None seen (None Seen) #/HPF Urine Bacteria None seen (NONE SEEN) #/HPF Urine Casts None seen (NONE SEEN) #/LPF Urine Mucus None seen (NONE SEEN) Discharge Plan Discharge Chief Complaint: Urogenital-Female Clinical Impression: Abdominal pain, LLQ Patient Disposition: Home, Self-Care Time of Disposition Decision: 02:04 Condition: Good Prescriptions / Home Meds: No Action levothyroxine 125 mcg tablet 125 mcg PO DAILY ibuprofen [IBU] 400 mg tablet 400 mg PO TID-QID PRN (Reason: fever or pain) Patient Comments: takes as needed cyclobenzaprine 10 mg Tablet 10 mg PO TID PRN (Reason: Muscle Spasm) Qty: 30 0RF prednisone 10 mg tablets,dose pack 10 mg PO DAILY Qty: 39 0RF Rx Instructions: 6 PO daily x 3 days, then 4 PO daily x 3 days, then 2 PO daily x 3 days, then 1 PO daily x 3 days oxycodone-acetaminophen 5-325 mg Tablet 1 tab PO Q4H PRN (Reason: Moderate Pain) 5 Days Qty: 0 0RF Instructions: Acute Abdominal Pain (ED) Stand Alone Forms: Portal Instructions Referrals: Physician,Non-Staff, MD [Primary Care Provider] - 1 week
[2023-05-26 01:31] VITALS: BP 160/88
[2023-05-26] MEDS: MORPHINE SULFATE 4 MG/ML VIAL IV (01:45)
[2023-05-26] MEDS: OXYCODONE HCL/ACETAMINOPHEN 5MG/325MG 1 TAB PO (02:16)
== END 2023-05-26 02:39 | disposition home or self-care (01) ==
PROVIDERS: Emergency Provider Emergency Medicine
DX: R10.32 Left lower quadrant pain (principal); Z90.710 Acquired absence of both cervix and uterus; Z79.890 Hormone replacement therapy; Z79.899 Other long term (current) drug therapy; E03.9 Hypothyroidism, unspecified; I08.0 Rheumatic disorders of both mitral and aortic valves; Z90.721 Acquired absence of ovaries, unilateral; Z95.2 Presence of prosthetic heart valve; Z90.49 Acquired absence of other specified parts of digestive tract; F17.290 Nicotine dependence, other tobacco product, uncomplicated; M50.10 Cervical disc disorder with radiculopathy, unspecified cervical region; M50.30 Other cervical disc degeneration, unspecified cervical region
CPT/HCPCS: 36415; 74176; 80053; 81001; 85025; 96374; 96375; 99284

== ENCOUNTER 2024-08-23 14:18 | Emergency (ER) | payer BC, SELFPAY ==
[2024-08-23 14:23] VITALS: BP 162/90; PULSE 95; O2SAT 98; BMI 33.2
--- NOTE | 2024-08-23 14:30 | ED_ITS ---
HPI HPI - General Adult General Chief complaint: Eye Problems Stated complaint: BLURRED VISION RIGHT EYE, RIGHT SIDE NUMB Time Seen by Provider: 08/23/24 14:23 Source: patient Mode of arrival: walk-in History of Present Illness HPI narrative: Patient presents to ED complaining of right eye issues. She says she is seeing double out of her right eye. She said it started feeling tearing and watery this morning and seemed irritated. She said there is been no trauma she has had no foreign body sensation. No pain in the eye at all. She said no pain around the eye no headache. No neck pain. She does say that she has a weird sensation that she feels like something is moving around on the side of her head and behind her eye. She says she also feels like there is pressure behind her eye. No fever nausea vomiting. No photosensitivity. She denies any ear pain or weird sensation on the tongue. No facial pain swelling or numbness or weakness. No right arm weakness no right leg weakness. She said she was at work today and just felt like she was seeing double out of that eye and could not concentrate so she came in for evaluation. Related Data Home Medications ?Medication ?Instructions ?Recorded ?Confirmed ibuprofen 400 mg tablet (IBU) 400 mg PO TID-QID PRN fever or pain 01/28/23 01/28/23 levothyroxine 125 mcg tablet 125 mcg PO DAILY 01/28/23 08/23/24 Previous Rx's ?Medication ?Instructions ?Recorded cyclobenzaprine 10 mg tablet 10 mg PO TID PRN Muscle Spasm #30 01/28/23 tabs oxycodone-acetaminophen 5 mg-325 1 tab PO Q4H PRN Moderate Pain 5 01/28/23 mg tablet days #0 tabs prednisone 10 mg tablets in a dose 10 mg PO DAILY #39 ea 01/28/23 pack Allergies Allergy/AdvReac Type Severity Reaction Status Date / Time aspirin Allergy Unknown Verified 01/27/23 22:06 Iodinated Contrast Media Allergy Unknown Verified 01/27/23 22:06 Penicillins Allergy Unknown Verified 01/27/23 22:06 promethazine (From Phenergan) Allergy Unknown Verified 01/27/23 22:06 Opioid HPI Opioid Management Most Recent Opioid Data: Last Pain Scale 7 01/28/23 09:55 01/28/23 Review of Systems ROS Status of ROS 10 or more systems reviewed and unremark able except as noted in history and below [facility] Medical History (Updated 08/23/24 @ 15:41 by Veronica Morales DO) Degenerative disc disease, cervical ?M50.30 - Other cervical disc degeneration, unspecified cervical region (ICD- 10) Herniation of cervical intervertebral disc with radiculopathy ?M50.10 - Cervical disc disorder with radiculopathy, unspecified cervical region (ICD-10) Hypothyroid ?E03.9 - Hypothyroidism, unspecified (ICD-10) Mitral and aortic valve disease ?I08.0 - Rheumatic disorders of both mitral and aortic valves (ICD-10) Surgical History (Updated 01/28/23 @ 05:02 by Sussy Manjarrez) History of appendectomy ?Z90.49 - Acquired absence of other specified parts of digestive tract (ICD- 10) H/O hysterectomy with unilateral oophorectomy ?Z90.710 - Acquired absence of both cervix and uterus (ICD-10) ?Z90.721 - Acquired absence of ovaries, unilateral (ICD-10) H/O mitral valve replacement ?Z95.2 - Presence of prosthetic heart valve (ICD-10) Family History (Updated 01/28/23 @ 05:02 by Sussy Manjarrez) Father Family history of cancer Mother Family history of cancer Social History (Updated 01/28/23 @ 05:20 by Sussy Manjarrez) Within the past year, how often did you have a drink containing alcohol: monthly or less Within the past year, how many standard drinks containing alcohol did you have on a typical day: 1 or 2 Within the past year, how often did you have six or more drinks on one occasion: never Total score: 0 Score interpretation: A score less than 3 is consistent with normal alcohol consumption. Smoking status: Current some day smoker Do you use any of these nicotine containing products: vaping products Non-prescribed substance use: denies use Little interest or pleasure in doing things: not at all Feeling down, depressed, or hopeless: not at all Feel stressed/tense/nervous/anxious/difficulty sleeping: not at all Do you think of yourself as: straight/heterosexual Gender Identity: female Exam Narrative Exam Narrative: Time Seen: [] Vital Signs: [Per nurse's notes.] General: [Alert] Skin: [Warm, dry, no rash.] Head: [Normocephalic, atraumatic.] Neck: [Supple, trachea midline.] Eye: [Pupils are equal, round and reactive to light, extraocular movements are intact, normal conjunctiva.] No rash or evidence of shingles around the eye or in the scalp Ears, nose, mouth and throat: oral mucosa moist. TMs clear bilaterally Cardiovascular: [Regular rate and rhythm, no murmur.] Respiratory: [Lungs are clear to auscultation, respirations are non-labored, breath sounds are equal.] Chest wall: [No tenderness, no deformity.] Gastrointestinal: [Soft, nontender, non distended, normal bowel sounds.] MSK: 5 out of 5 muscle strength x 4 extremities no calf pain or edema Lymphatics: [No lymphadenopathy.] Psychiatric: [Cooperative, appropriate mood & affect.] Neurological: [Alert and oriented to person, place, time, and situation, no focal neurological deficit observed.] Constitutional Vital Signs, click to edit/add: Last Vital Signs Pulse 95 H 08/23/24 14:23 Resp 18 08/23/24 14:23 BP 162/90 H 08/23/24 14:23 Pulse Ox 98 08/23/24 14:23 O2 Del Method Room Air 08/23/24 14:23 Course Vital Signs Vital signs: Vital Signs Pulse Rate 95 H 08/23/24 14:23 Respiratory Rate 18 08/23/24 14:23 Blood Pressure 162/90 H 08/23/24 14:23 Pulse Oximetry 98 08/23/24 14:23 Oxygen Delivery Method Room Air 08/23/24 14:23 Pulse Rate 95 H 08/23/24 14:23 Respiratory Rate 18 08/23/24 14:23 Blood Pressure 162/90 H 08/23/24 14:23 Pulse Oximetry 98 08/23/24 14:23 Oxygen Delivery Method Room Air 08/23/24 14:23 Medical Decision Making MDM Narrative Medical decision making narrative: NIH scale was negative Patient ambulated to the bathroom and back. Patient CT scan shows no acute findings. I did a fluorescein stain after tetracaine and I did not appreciate any corneal abrasion or foreign body. Extraocular movements are intact no periorbital swelling or redness. Pupils equal and round and reactive to light. I did attempt to measure with the Elier-Pen for intraocular pressures however the Elier-Pen would not calibrate and I tried multiple times to get it to work and it would not work. I called and spoke to the staff at [facility]. They closed soon and could not get her in tonight however the telegraph inspector said it would be okay for her to come tomorrow. Patient states she can go tomorrow. I gave her the phone number and address and told her to call first thing in the morning when it opens and they could get her in. Of course if there are any neurological changes worsening vision changes eye pain arm or leg weakness or neurological changes then please return immediately to the emergency room. Patient is agreeable and comfortable with care plan for home. Differential Diagnosis Differential Diagnosis: Vision changes, stroke, TIA, migraine Imaging Data CT scan - head: Radiologist's impression: ITS Impressions Head CT 08/23/24 14:50 IMPRESSION: No acute intracranial process. Electronically authenticated by: MAMADOU HERNANDEZ Date: 08/23/2024 15:28 Discharge Plan Discharge Chief Complaint: Eye Problems Clinical Impression: Vision changes Patient Disposition: Home, Self-Care Time of Disposition Decision: 15:40 Condition: Good Mode of Transportation: Private Vehicle Prescriptions / Home Meds: No Action levothyroxine 125 mcg tablet 125 mcg PO DAILY ibuprofen [IBU] 400 mg tablet 400 mg PO TID-QID PRN (Reason: fever or pain) Patient Comments: takes as needed cyclobenzaprine 10 mg Tablet 10 mg PO TID PRN (Reason: Muscle Spasm) Qty: 30 0RF prednisone 10 mg tablets,dose pack 10 mg PO DAILY Qty: 39 0RF Rx Instructions: 6 PO daily x 3 days, then 4 PO daily x 3 days, then 2 PO daily x 3 days, then 1 PO daily x 3 days oxycodone-acetaminophen 5-325 mg Tablet 1 tab PO Q4H PRN (Reason: Moderate Pain) 5 Days Qty: 0 0RF Print Language: Ivorian Instructions: Blurred Vision (ED) Referrals: RENA LESTER [Physician] - 1 week Physician,Non-Staff, MD [Primary Care Provider] - 1 week
--- NOTE | 2024-08-23 14:50 | CT_ITS ---
[address] [address] Patient Name: RAND SCOTT MRN: [id number] date: 1975 Sex: F Assigned Patient Location: ER Current Patient Location: ER Accession/Order Number: [id number] Exam Date: 08/23/2024 14:55 Report Date: 08/23/2024 15:28 At the request of: ROBERTO GEORGE Procedure: CT head/brain wo con EXAM: CT head/brain wo con CLINICAL INDICATION: double vision R eye COMPARISON: None TECHNIQUE: Axial CT images of the brain were obtained without contrast. Coronal and sagittal reformats were obtained. Dose reduction techniques were achieved by using automated exposure control and/or adjustment of mA and/or kV according to patient size and/or use of iterative reconstruction technique. FINDINGS: No intracranial hemorrhage, extra-axial fluid collection, hydrocephalus, midline shift, or acute infarction. No other mass effect. Patent basal cisterns. No calvarial fracture. Normal soft tissues. Paranasal sinuses and mastoid air cells are well-aerated. CT/CT head/brain wo con IMPRESSION: No acute intracranial process. Electronically authenticated by: MAMADOU HERNANDEZ Date: 08/23/2024 15:28
[2024-08-23] MEDS: FLUORESCEIN SODIUM 1 MG STRIP OP (14:51)
[2024-08-23] MEDS: TETRACAINE HCL 0.5% OP SOL 80 DROP/4 ML BOTTLE OP (14:52)
== END 2024-08-23 15:53 | disposition home or self-care (01) ==
PROVIDERS: Emergency Provider Emergency Medicine
DX: H53.2 Diplopia (principal); Z90.710 Acquired absence of both cervix and uterus; Z90.721 Acquired absence of ovaries, unilateral; Z95.2 Presence of prosthetic heart valve; Z90.49 Acquired absence of other specified parts of digestive tract; F17.290 Nicotine dependence, other tobacco product, uncomplicated
CPT/HCPCS: 70450; 99284